=== PATIENT | female | born 1935 | race Caucasian/White ===

== ENCOUNTER 2016-08-04 08:57 | Emergency (ER) | payer OTHER, MEDICAID ==
[2016-08-04 09:06] VITALS: BMI 27.9
[2016-08-04 09:16] VITALS: BP 144/78; PULSE 71; RESP 15; TEMP 98.1; O2SAT 98
[2016-08-04] MEDS ORDERED: TDAP Vaccine 0.5 mL Syr IM ONE (09:33)
--- NOTE | 2016-08-04 09:35 | ED PDOC ---
Arrival/HPI - General Chief Complaint: Abnormal Skin Integrity Time Seen by Provider: 08/04/16 09:15 Historian: Patient - History of Present Illness Narrative History of Present Illness (Text): 08/04/16 09:32 81yo female biba for left hand laceration. sates she slipped while cutting avocado this morning and accidentally cut her left hand. States she is not up to date with her TD booster. denies hitting her head anywhere. Denies LOC. Past Medical History - Provider Review Nursing Documentation Reviewed: Yes - Infectious Disease Hx of Infectious Diseases: None - Reproductive Menopause: Yes - Cardiac Hx Cardiac Disorders: Yes Hx Hypertension: Yes Hx Pacemaker: No Other/Comment: stent placed in heart - Pulmonary Hx Respiratory Disorders: No - Neurological Hx Neurological Disorder: No - HEENT Hx HEENT Disorder: Yes Other/Comment: glasses - Renal Hx Renal Disorder: No - Endocrine/Metabolic Hx Endocrine Disorders: Yes Hx Diabetes Mellitus Type 2: Yes - Hematological/Oncological Hx Blood Disorders: No Hx Blood Transfusions: No Hx Blood Transfusion Reaction: No - Integumentary Hx Dermatological Disorder: No - Musculoskeletal/Rheumatological Hx Musculoskeletal Disorders: Yes Other/Comment: neuropathy - Gastrointestinal Hx Gastrointestinal Disorders: No - Genitourinary/Gynecological Hx Genitourinary Disorders: No - Psychiatric Hx Psychophysiologic Disorder: No Hx Emotional Abuse: No Hx Physical Abuse: No Hx Substance Use: No - Surgical History Hx Cardiac Catheterization: Yes (stent x1) - Anesthesia Hx Anesthesia: Yes Hx Anesthesia Reactions: No (FELT EVERYTHING DURING COLONOSCOPY) Hx Malignant Hyperthermia: No - Suicidal Assessment Feels Threatened In Home Enviroment: No Family/Social History - Physician Review Nursing Documentation Reviewed: Yes Family/Social History: Unknown Family HX Smoking Status: Never Smoked Hx Alcohol Use: No Hx Substance Use: No Allergies/Home Meds Allergies/Adverse Reactions: Allergies No Known Allergies Allergy (Verified 08/04/16 09:06) Home Medications: Home Meds Medication Instructions Recorded Confirmed Metformin HCl 1,000 mg PO BID 08/30/13 08/04/16 Gabapentin [Neurontin] 600 mg PO BID 04/20/15 08/04/16 Glyburide 5 mg PO BID 04/20/15 08/04/16 Lipase/Protease/Amylase [Pancreaze 2 cap PO TID 04/20/15 08/04/16 4,200 Unit Cap] Metoprolol Tartrate [Lopressor] 25 mg PO BID 04/20/15 08/04/16 Aspirin [Ecotrin] 81 mg PO DAILY 04/29/15 08/04/16 Clopidogrel [Plavix] 75 mg PO DAILY 04/30/15 08/04/16 Review of Systems - Physician Review All systems were reviewed & negative as marked: Yes - Review of Systems Constitutional: Normal Eyes: Normal ENT: Normal Respiratory: Normal Cardiovascular: Normal Gastrointestinal: Normal Genitourinary Female: Normal Musculoskeletal: Normal Skin: Laceration (Left hand) Neurological: Normal Endocrine: Normal Hemo/Lymphatic: Normal Psychiatric: Normal Physical Exam Vital Signs Reviewed: Yes Vital Signs Temp Pulse Resp BP Pulse Ox 08/04/16 09:15 98.1 F 71 15 144/78 98 Temperature: Afebrile Blood Pressure: Normal Pulse: Regular Respiratory Rate: Normal Appearance: Positive for: Well-Appearing, Non-Toxic, Comfortable Pain Distress: None Mental Status: Positive for: Alert and Oriented X 3 - Systems Exam Head: Present: Atraumatic, Normocephalic Pupils: Present: PERRL Extroacular Muscles: Present: EOMI Conjunctiva: Present: Normal Mouth: Present: Moist Mucous Membranes Neck: Present: Normal Range of Motion Respiratory/Chest: Present: Clear to Auscultation, Good Air Exchange. No: Respiratory Distress, Accessory Muscle Use Cardiovascular: Present: Regular Rate and Rhythm, Normal S1, S2. No: Murmurs Abdomen: Present: Normal Bowel Sounds. No: Tenderness, Distention, Peritoneal Signs Back: Present: Normal Inspection Upper Extremity: Present: Normal Inspection. No: Cyanosis, Edema Lower Extremity: Present: Normal Inspection. No: Edema Neurological: Present: GCS=15, CN II-XII Intact, Speech Normal Skin: Present: Warm, Dry, Normal Color, Laceration (0.5cm linear laceration, actively bleeding noted). No: Rashes Psychiatric: Present: Alert, Oriented x 3, Normal Insight, Normal Concentration Medical Decision Making - Medication Orders Current Medication Orders: Discontinued Medications Cephalexin Monohydrate (Keflex) 500 mg PO STAT STA PRN Reason: Protocol Stop: 08/04/16 09:32 Last Admin: 08/04/16 09:47 Dose: 500 mg Lidocaine/Epinephrine (Lidocaine/Epi 1% 1:[id number] 20 Ml) 0 ml IJ ONCE STA Stop: 08/04/16 09:32 Last Admin: 08/04/16 10:08 Dose: 5 ml Comments: admin by NELDA Muhammad Tetanus/Reduced Diphtheria/Acell Pertussis (Boostrix Vaccine Inj) 0.5 ml IM .ONCE ONE Stop: 08/04/16 09:34 Last Admin: 08/04/16 09:47 Dose: 0.5 ml Procedure: Wound Repair - Consent Obtained Consent obtained: Verbal - Performed by Performed by: Mid-level Provider - Indications Indication(s):: Laceration - Location Location:: Left, Hand Shape:: Linear Dimensions Length cm: 0.5 - Anesthetic Technique Anesthetic Technique: Local - Debris Debris:: None - Irrigated Irrigated with ml of normal saline: 40 - Complexity Complexity:: Intermediate (2 layer) - Muscle repiar layer closed with Muscle repair layer closed with:: # (2), Size (5), Type (absorbale), Technique ( intrrupted), Wound well approximated, Abx ointment applied, Dressing applied, Tetanus ordered - Patient tolerated procedure Patient Tolerated Procedure:: Well Disposition/Present on Arrival - Present on Arrival Any Indicators Present on Arrival: No History of DVT/PE: No History of Uncontrolled Diabetes: No Urinary Catheter: No History of Decub. Ulcer: No History Surgical Site Infection Following: None - Disposition Have Diagnosis and Disposition been Completed?: Yes Diagnosis: Laceration, Hand laceration Disposition: HOME/ ROUTINE Disposition Time: 10:00 Patient Plan: Discharge Condition: STABLE Discharge Instructions (ExitCare): Care For Your Stitches (ED), Laceration (ED) Additional Instructions: Follow up with your Doctor Return to ED for fever, redness, purulent discharge from wound Prescriptions: Cephalexin [Keflex] 500 mg PO TID #21 capsule [place] [facility] [place] [facility] [place] - Follow up with primary
[2016-08-04] MEDS: Lidocaine/Epi 1% 1:100000 20 ML IJ STA ×2 (09:53→10:08)
== END 2016-08-04 10:12 | disposition home or self-care (01) ==
LOC: ED 08:57
DX: S61.412A Laceration without foreign body of left hand, initial encounter (principal); W26.0XXA Contact with knife, initial encounter; Y93.G1 Activity, food preparation and clean up; Y92.89 Other specified places as the place of occurrence of the external cause; Z23 Encounter for immunization

== ENCOUNTER 2016-08-14 17:22 | Inpatient (IN) | payer OTHER, MEDICAID ==
[2016-08-14 17:50] VITALS: BMI 27.1
[2016-08-14] MEDS ORDERED: Vancomycin 1gm in NS 250ml 1 GM/250 ML BAG IVPB STA (18:09)
[2016-08-14] MEDS ORDERED: Sodium Chloride 0.9% 500 ML IV STA (18:09)
[2016-08-14 18:40] LABS: BASO # 0.05 K/mm3 (0.0-2.0); BASO % 0.8 % (0.0-3.0); EOS # 0.2 (0.0-0.7); EOS % 2.5 % (1.5-5.0); GRAN # 3.06 (1.4-6.5); HEMOGLOBIN 10.3 gm/dL (12.0-16.0); LYMPH # 2.3 (1.2-3.4); LYMPH % 38.2 % (22.0-35.0); MEAN CELL VOLUME 82.5 fL (80.0-105.0); MEAN CORPUSCULAR HGB CONC 32.7 g/dl (31.0-37.0); MEAN PLATELET VOLUME 9.9 fl (7.0-11.0); MONO # 0.5 (0.1-0.6); MONO % 8.5 % (1.0-6.0); PLATELET COUNT 281 10^3/uL (120.0-450.0); RBC 3.82 10^6/uL (3.5-6.1); RED CELL DISTRIBUTION WIDTH 13.7 % (11.5-14.5); WHITE BLOOD COUNT 6.1 10^3/ul (4.5-11.0)
--- NOTE | 2016-08-14 18:40 | ED PDOC ---
Arrival/HPI - General Chief Complaint: Finger,Hand,&Wrist Time Seen by Provider: 08/14/16 17:51 - History of Present Illness Narrative History of Present Illness (Text): 08/14/16 18:37 81yo female with L. hand pain. states she sustained a laceration on 08/04 which was repaired. Denies fever or chills. Pain is constant with no relieving or exacerbating factors. No other complaints. Past Medical History - Provider Review Nursing Documentation Reviewed: Yes - Infectious Disease Hx of Infectious Diseases: None - Cardiac Hx Hypertension: Yes Hx Pacemaker: No - Pulmonary Hx Respiratory Disorders: No - Neurological Hx Neurological Disorder: No - HEENT Hx HEENT Disorder: Yes Other/Comment: glasses - Renal Hx Renal Disorder: No - Endocrine/Metabolic Hx Endocrine Disorders: Yes Hx Diabetes Mellitus Type 2: Yes - Hematological/Oncological Hx Blood Transfusions: No Hx Blood Transfusion Reaction: No - Integumentary Hx Dermatological Disorder: No - Musculoskeletal/Rheumatological Hx Musculoskeletal Disorders: Yes - Gastrointestinal Hx Gastrointestinal Disorders: No - Genitourinary/Gynecological Hx Genitourinary Disorders: No - Psychiatric Hx Psychophysiologic Disorder: No Hx Substance Use: No - Surgical History Hx Cardiac Catheterization: Yes (stent x1) - Anesthesia Hx Anesthesia Reactions: No (FELT EVERYTHING DURING COLONOSCOPY) Hx Malignant Hyperthermia: No - Suicidal Assessment Feels Threatened In Home Enviroment: No Family/Social History Family/Social History: Unknown Family HX Smoking Status: Never Smoked Hx Alcohol Use: No Hx Substance Use: No Allergies/Home Meds Allergies/Adverse Reactions: Allergies No Known Allergies Allergy (Verified 08/14/16 17:50) Home Medications: Home Meds Medication Instructions Recorded Confirmed Metformin HCl 1,000 mg PO BID 08/30/13 08/14/16 Gabapentin [Neurontin] 600 mg PO TID 04/20/15 08/14/16 Glyburide 5 mg PO BID 04/20/15 08/14/16 Lipase/Protease/Amylase [Pancreaze 2 cap PO TID 04/20/15 08/14/16 4,200 Unit Cap] Metoprolol Tartrate [Lopressor] 25 mg PO BID 04/20/15 08/14/16 Aspirin [Ecotrin] 81 mg PO DAILY 04/29/15 08/14/16 Clopidogrel [Plavix] 75 mg PO DAILY 03/10/16 06/25/17 Review of Systems - Physician Review All systems were reviewed & negative as marked: Yes - Review of Systems Skin: Other (hand pain) Physical Exam Vital Signs Reviewed: Yes Vital Signs Temp Pulse Resp BP Pulse Ox 08/14/16 17:58 98.1 F 87 16 159/84 H 96 Temperature: Afebrile Blood Pressure: Hypertensive Pulse: Regular Respiratory Rate: Normal Appearance: Positive for: Well-Appearing Pain Distress: None Mental Status: Positive for: Alert and Oriented X 3 - Systems Exam Head: Present: Atraumatic, Normocephalic Pupils: Present: PERRL Extroacular Muscles: Present: EOMI Conjunctiva: Present: Normal Mouth: Present: Moist Mucous Membranes Neck: Present: Normal Range of Motion Respiratory/Chest: Present: Clear to Auscultation, Good Air Exchange. No: Respiratory Distress, Accessory Muscle Use Cardiovascular: Present: Regular Rate and Rhythm, Normal S1, S2. No: Murmurs Abdomen: Present: Normal Bowel Sounds. No: Tenderness, Distention, Peritoneal Signs, Rebound, Guarding Back: Present: Normal Inspection Upper Extremity: Present: Other (Left hand, blas aspect with a well approximated incision. Sutures in place. Pulsatile mass ~1.5cm. No surrounding erythema or cellulitis noted. Distal neurovasc. fully intact, no discoloration. 5/5 digit strength, full active and passive ROM). No: Cyanosis, Edema Neurological: Present: GCS=15, CN II-XII Intact, Speech Normal, Other (no focal neurological deficits) Skin: Present: Warm, Dry, Normal Color. No: Rashes Psychiatric: Present: Alert, Oriented x 3, Normal Insight, Normal Concentration Medical Decision Making ED Course and Treatment: 08/14/16 18:48 81yo female, hand sutures applied on 08/04, with pain and pulsatile mass at the suture site Left hand, blas aspect with a well approximated incision. Sutures in place. Pulsatile mass ~1.5cm. No surrounding erythema or cellulitis noted. Distal neurovasc. fully intact, no discoloration. 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 Gilmore in detail, agrees with admission to her service, asked to consult Dr. Thomas Rachel. pt in no distress, neurovasc. intact pt aware of and agrees with plan 08/14/16 20:[address] Thomas Rachel, in detail, including US findings, states will see pt tomorrow - Lab Interpretations Lab Results: 08/14/16 18:15 08/14/16 18:15 Lab Results 08/14/16 18:15: Blood Type Pending, Antibody Screen Pending, BBK History Checked No verified bt 08/14/16 18:15: Sodium 137, Potassium 4.0, Chloride 99, Carbon Dioxide 26, Anion Gap 16, BUN 33 H, Creatinine 1.1, Est GFR ( Amer) 58, Est GFR (Non- Af Amer) 48, Random Glucose 267 H, Calcium 11.0 H, Total Bilirubin 0.4, AST 45 H , ALT 39, Alkaline Phosphatase 86, Total Protein 7.4, Albumin 4.3, Globulin 3.1 , Albumin/Globulin Ratio 1.4 08/14/16 18:15: PT 12.3 H, INR 1.14 H, APTT 27.1 08/14/16 18:15: WBC 6.1, RBC 3.82, Hgb 10.3 L, Hct 31.5 L, MCV 82.5, MCH 27.0, MCHC 32.7, RDW 13.7, Plt Count 281, MPV 9.9, Gran % 50.0, Lymph % (Auto) 38.2 H , [place] % (Auto) 8.5 H, Eos % (Auto) 2.5, Baso % (Auto) 0.8, Gran # 3.06, Lymph # 2.3, [place] # 0.5, Eos # 0.2, Baso # 0.05 - RAD Interpretation Radiology Orders: 08/14/16 18:10 DUPLEX UPPER EXTRM ARTR LEFT [US] Stat - Medication Orders Current Medication Orders: Discontinued Medications Sodium Chloride (Sodium Chloride 0.9%) 500 mls @ 1,000 mls/hr IV .Q30M STA Stop: 08/14/16 18:38 Last Admin: 08/14/16 19:06 Dose: 1,000 mls/hr Vancomycin HCl (Vancomycin 1gm) 1 gm in 250 mls @ 133.333 mls/hr IVPB STAT STA PRN Reason: Protocol Stop: 08/14/16 20:01 Last Admin: 08/14/16 19:00 Dose: 133.333 mls/hr Disposition/Present on Arrival - Present on Arrival Any Indicators Present on Arrival: No History of DVT/PE: No History of Uncontrolled Diabetes: No Urinary Catheter: No History of Decub. Ulcer: No History Surgical Site Infection Following: None - Disposition Have Diagnosis and Disposition been Completed?: Yes Diagnosis: Pseudoaneurysm Disposition: HOSPITALIZED Disposition Time: 20:27 Patient Plan: Admission Patient Problems: Current Active Problems Problem Status Onset Pseudoaneurysm Acute Condition: FAIR Referrals: Zaida Gilmore MD [Primary Care Provider] - Follow up with primary
[2016-08-14 18:50] LABS: INR 1.14 (0.93-1.08); PARTIAL THROMBOPLASTIN TIME 27.1 Seconds (23.7-30.8); PROTHROMBIN TIME 12.3 Seconds (9.9-11.8)
[2016-08-14 18:51] LABS: ALB/GLOB RATIO 1.4 (1.1-1.8); ALBUMIN 4.3 g/dL (3.0-4.8)
--- NOTE | 2016-08-14 19:05 | US ---
PROCEDURE: Duplex arterial ultrasound of the left wrist HISTORY: Penetrating trauma left wrist. Pulsatile mass. Evaluate for pseudoaneurysm. PHYSICIAN(S): Brayden Singh MD. 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 This is a wide-necked aneurysm. Minimal thrombus is present. The ulnar artery is patent. No arterial-venous fistula is seen IMPRESSION: 1. 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
--- NOTE | 2016-08-14 21:42 | CP.PCM.CON ---
History of Present Illness - History of Present Illness History of Present Illness: General Surgery Consult Note for Dr. Leal CC: Painful Lump on lbas aspect of left hand HPI: This is a 81F with a PMH of HTN, CAD s/p Stenting, Chronic pancreatitis, and glaucoma presents with a pulsitile mass that she recognized a few days ago. She reports that a week and a hlaf ago she come to the ED due to a laceration on her hand. It was sutured in the ED. A few days ago she noticed a lump which was painful and she thought it maybe infected so she went to the ED. It was noted that it was pulsitile and an ultrasound was done which showed a 1.7 cm psuedoaneurysm on the left hand. She denies any fevers or chills at home, denies chets pain SOB or any other alarming symptomes. PMH: See above PSH: Eye surgery, cardiac stenting All: Denies Social: Denies etoh, tobacco, or drugs Review of Systems - Review of Systems All systems: reviewed and no additional remarkable complaints except Past Patient History - Infectious Disease Hx of Infectious Diseases: None - Past Social History Smoking Status: Never Smoked - CARDIAC Hx Hypertension: Yes Hx Pacemaker: No - PULMONARY Hx Respiratory Disorders: No - NEUROLOGICAL Hx Neurological Disorder: No - HEENT Hx HEENT Problems: Yes Other/Comment: glasses - RENAL Hx Chronic Kidney Disease: No - ENDOCRINE/METABOLIC Hx Endocrine Disorders: Yes Hx Diabetes Mellitus Type 2: Yes - HEMATOLOGICAL/ONCOLOGICAL Hx Blood Transfusions: No Hx Blood Transfusion Reaction: No - INTEGUMENTARY Hx Dermatological Problems: No - MUSCULOSKELETAL/RHEUMATOLOGICAL Hx Musculoskeletal Disorders: Yes - GASTROINTESTINAL Hx Gastrointestinal Disorders: No - GENITOURINARY/GYNECOLOGICAL Hx Genitourinary Disorders: No - PSYCHIATRIC Hx Psychophysiologic Disorder: No Hx Substance Use: No - SURGICAL HISTORY Hx Cardiac Catheterization: Yes (stent x1) - ANESTHESIA Hx Anesthesia Reactions: No (FELT EVERYTHING DURING COLONOSCOPY) Hx Malignant Hyperthermia: No Meds Allergies/Adverse Reactions: Allergies Allergy/AdvReac Type Severity Reaction Status Date / Time No Known Allergies Allergy Verified 08/14/16 17:50 Physical Exam - Constitutional Appears: Non-toxic, No Acute Distress - Head Exam Head Exam: ATRAUMATIC, NORMOCEPHALIC - Eye Exam Eye Exam: EOMI, Normal appearance - ENT Exam ENT Exam: Mucous Membranes Moist - Respiratory Exam Respiratory Exam: NORMAL BREATHING PATTERN - Cardiovascular Exam Cardiovascular Exam: REGULAR RHYTHM - GI/Abdominal Exam GI & Abdominal Exam: Soft. absent: Distended, Firm, Rigid, Tenderness - Extremities Exam Additional comments: Left hand blas aspect with pulsitile mass, with surrounding tenderess, muscles strength 5/5 Results - Vital Signs Recent Vital Signs: Last Vital Signs Temp 98.1 F 08/14/16 17:58 Pulse 88 08/14/16 19:23 Resp 18 08/14/16 19:23 BP 144/78 08/14/16 19:23 Pulse Ox 99 08/14/16 19:23 - Labs Result Diagrams: 08/14/16 18:15 08/14/16 18:15 Assessment & Plan - Assessment and Plan (Free Text) Assessment: This is a 81F with a psuedoaneurism OR for Surgical repair on Monday D/W Dr. Elvis Pickering PGY-1
[2016-08-14] MEDS ORDERED: DiphenhydrAMINE 50 mg/ml Inj IVP STA (22:46)
--- NOTE | 2016-08-14 22:46 | CP.PCM.PN ---
Subjective - Date & Time of Evaluation Date of Evaluation: 08/14/16 Time of Evaluation: 23:04 - Subjective Subjective: Patient was seen at bedside. Complains of itching in both legs. No rashes. No sob, no wheezing. No other complaints. Has no allergies to meds , food or any other substance. Had received one dose of Vancomycin 97% 82 153/87. She is admitted with infected laceration site in left palm, pseudoaneurism. Has PMH of HTN,CAD , coronary stenting,chronic pancreatitis. Objective - Vital Signs/Intake and Output Vital Signs (last 24 hours): Temp Pulse Resp BP Pulse Ox 98.1 F 88 18 144/78 99 08/14/16 17:58 08/14/16 21:50 08/14/16 21:50 08/14/16 21:50 08/14/16 19:23 - Labs Labs: PT 12.3 Seconds (9.9-11.8) H 08/14/16 18:15 INR 1.14 (0.93-1.08) H 08/14/16 18:15 APTT 27.1 Seconds (23.7-30.8) 08/14/16 18:15 - Constitutional Appears: Well, No Acute Distress - Head Exam Head Exam: ATRAUMATIC, NORMAL INSPECTION, NORMOCEPHALIC - Eye Exam Eye Exam: Normal appearance - ENT Exam ENT Exam: Normal External Ear Exam - Neck Exam Neck Exam: Normal Inspection - Respiratory Exam Respiratory Exam: NORMAL BREATHING PATTERN - Cardiovascular Exam Cardiovascular Exam: absent: JVD - GI/Abdominal Exam GI & Abdominal Exam: absent: Distended - Rectal Exam Rectal Exam: Deferred - Exam Additional comments: Deferred. - Extremities Exam Additional comments: Left palm has < 0.5 cm size lump with whitish overlying skin. - Back Exam Back Exam: NORMAL INSPECTION - Neurological Exam Neurological Exam: Alert, Oriented x3 - Psychiatric Exam Psychiatric exam: Normal Affect, Normal Mood - Skin Additional comments: As above. Assessment and Plan - Assessment and Plan (Free Text) Assessment: Left palm pseudoaneurism. Both legs itching. HTN. CAD. Hx coronary stent . Plan: Benadryl 25 mg PO stat. Lipitor 10 mg PO daily. Plavix 75 mg PO daily. Continue management as per PMD.
[2016-08-14] MEDS ORDERED: HYDROmorphone 0.5 mg/0.5 ml ISec IVP PRN (23:04)
[2016-08-15] MEDS: Insulin Reg-LOW-Coverage SC SCH ×4 (08:29→23:36)
[2016-08-15] MEDS: cefTRIAXone 1 gm 1 GM/100 ML BAG IVPB SCH (09:44)
[2016-08-15] MEDS: Amylase/Lipase/Protease 5,000 U ECC PO SCH ×3 (12:30→19:29)
[2016-08-15] MEDS ORDERED: Iodixanol 320 MG/ML 200 ML BOTTLE IV ONE (13:23)
[2016-08-15] MEDS ORDERED: Lidocaine 2% Inj (20ml) ONE (13:23)
[2016-08-15] MEDS ORDERED: Iodixanol 320 mg/ml 150 ml Bottle IV ONE (13:23)
[2016-08-15] MEDS ORDERED: Nitroglycerin 50mg in D5W 0 MG/0 ML BOTTLE IV ONE (13:24)
[2016-08-15] MEDS ORDERED: DiphenhydrAMINE 50 mg/ml Inj ONE (13:32)
[2016-08-15] MEDS ORDERED: Morphine 2 mg/ml ISec ONE ×2 (13:32→13:52)
[2016-08-15] MEDS ORDERED: Metoprolol 1 mg/ml Inj IVP ONE ×2 (13:55→14:13)
[2016-08-15] MEDS ORDERED: Sodium Chloride 0.9% 1,000 ML IV SCH (14:55)
--- NOTE | 2016-08-15 17:40 | OP ---
PROCEDURE DATE: 08/15/2016 PREOPERATIVE DIAGNOSES: Left palmar false aneurysm. POSTOPERATIVE DIAGNOSES: Left palmar false aneurysm. PROCEDURE: Left arm, forearm and hand angiogram via right femoral puncture site. SURGEON: Louann Leal MD. ANESTHESIA: Local bone. PROCEDURE NOTE: The patient was brought to the angio suite and placed supine on the angio table. The right groin was prepped and draped as a sterile field. After local infiltration with 1% Xylocaine, the right femoral artery was cannulated with a micropuncture kit and a guidewire passed into the iliac artery. The micropuncture sheath was exchanged for a 5-Telugu sheath and a stiff angled guidewire passed via the sheath into the aortic arch. Using a 90 cm Charles catheter, the catheter and guidewire was maneuvered into the left subclavian artery. The catheter was placed at the distal brachial artery just below the antecubital fossa. Serial angiogram showed the following: The patient has an absent radial artery here, she has a patent ulnar and interosseous artery. There is a large false aneurysm at the 4th digital artery at the base. There appeared to be adequate cross collaterals of the left digits. After that, the catheter was withdrawn into the axillary artery to rule out a highoff of the radial artery and none was found. The catheter was removed. The sheath was removed when the blood pressure is below 140 systolic. The patient tolerated the procedure well and was returned to the recovery room in stable condition. Louann Leal MD cc: [id number] TT: 08/15/2016 17:39:08 jn MTDD
[2016-08-15] MEDS ORDERED: Amylase/Lipase/Protease 5,000 U ECC PO SCH (19:06)
[2016-08-16] MEDS: Insulin Reg-LOW-Coverage SC SCH ×4 (08:03→21:21)
--- NOTE | 2016-08-16 08:20 | RAD ---
HISTORY: pre op surgery COMPARISON: 09/04/2013. TECHNIQUE: Chest PA and lateral FINDINGS: LUNGS: The lungs are clear. PLEURA: No significant pleural effusion identified. No pneumothorax apparent. CARDIOVASCULAR: Normal. OSSEOUS STRUCTURES: No significant abnormalities. VISUALIZED UPPER ABDOMEN: Normal. OTHER FINDINGS: None. IMPRESSION: No active pulmonary disease.
[2016-08-16] MEDS ORDERED: Thrombin Topical 5,000 IU Spray Kit ONE (08:57)
[2016-08-16] MEDS ORDERED: Bupivacaine 0.5% Inj(30mL) ONE (08:57)
[2016-08-16] MEDS ORDERED: Lidocaine 1% Inj (20ml) ONE (08:57)
[2016-08-16] MEDS ORDERED: Propofol 10 mg/ml Inj (20 ML) ONE (08:57)
[2016-08-16] MEDS ORDERED: Absorbable Gelatin Sponge Size 100 ONE (08:57)
[2016-08-16] MEDS ORDERED: Iohexol 240 (50 ml) ONE (08:57)
[2016-08-16] MEDS ORDERED: cefTRIAXone (Rocephin) 1 gm Inj ONE (09:06)
[2016-08-16] MEDS ORDERED: Rocuronium 10 mg/ml (5 ml) ONE (09:21)
[2016-08-16] MEDS ORDERED: ePHEDrine 50 mg/ml Inj ONE (09:36)
--- NOTE | 2016-08-16 09:54 | CARD ---
APPROVED REPORT EKG Measurement Heart [id number] <Conclusion> Normal sinus rhythm Left axis deviation Nonspecific T wave abnormality Abnormal ECG
[2016-08-16] MEDS ORDERED: Neostigmine Methylsulfate 3mg/3ml Syringe IV ONE (10:21)
[2016-08-16] MEDS ORDERED: HYDROmorphone 0.5 mg/0.5 ml ISec IVP PRN (10:40)
--- NOTE | 2016-08-16 10:42 | PCM.SURG1 ---
Surgeon's Initial Post Op Note - Surgeon's Notes Surgeon: Dr. Leal Keycase Assembler: Dr. Mark, PGY1 Pre-Operative Diagnosis: Left digital palmar artery pseudoaneurysm Operative Findings: see operative report Post-Operative Diagnosis: same Operation Performed: excision of left palmar digital pseudoaneurysm Specimen/Specimens Removed: digital artery pseudoaneurysm Estimated Blood Loss: EBL {In ML}: 5 Blood Products Given: N/A Drains Used: No Drains Post-Op Condition: Good Date of Surgery/Procedure: 08/16/16 Time of Surgery/Procedure: 10:41
[2016-08-16] MEDS ORDERED: Sodium Chloride 0.9% 1,000 ML IV SCH (10:45)
[2016-08-16] MEDS: Amylase/Lipase/Protease 5,000 U ECC PO SCH ×3 (11:11→17:21)
[2016-08-16] MEDS: cefTRIAXone 1 gm 1 GM/100 ML BAG IVPB SCH (13:14)
[2016-08-16] MEDS ORDERED: Fluorescein 1 mg Ophthalmic Strip OS ONE (14:33)
--- NOTE | 2016-08-16 14:43 | CP.PCM.PN ---
Subjective - Date & Time of Evaluation Date of Evaluation: 08/16/16 Time of Evaluation: 14:40 - Subjective Subjective: called by nurse to see pt is c/o something in her rt eye.pt states she feels like something is in her rt eyeand she is keeping the eye closed for that reason. Objective - Vital Signs/Intake and Output Vital Signs (last 24 hours): Temp Pulse Resp BP Pulse Ox 98.9 F 83 18 149/71 97 08/16/16 12:05 08/16/16 12:05 08/16/16 12:05 08/16/16 12:05 08/16/16 12:05 Intake and Output: 08/16/16 08/16/16 06:59 18:59 Intake Total 100 240 Balance 100 240 - Medications Medications: Current Medications Amylase (Pancrease 24642 U-5000 U-[id number] U) 10,000 u PO TID [facility] Last Admin: 08/16/16 13:14 Dose: 10,000 u Aspirin (Ecotrin) 81 mg PO HS [facility] Last Admin: 08/15/16 23:26 Dose: 81 mg Atorvastatin Calcium (Lipitor) 10 mg PO DIN [facility] Last Admin: 08/15/16 18:48 Dose: 10 mg Clopidogrel Bisulfate (Plavix) 75 mg PO HS [facility] Last Admin: 08/15/16 23:26 Dose: 75 mg Famotidine (Pepcid) 40 mg PO HS [facility] Last Admin: 08/15/16 23:26 Dose: 40 mg Gabapentin (Neurontin) 600 mg PO TID [facility] PRN Reason: Protocol Last Admin: 08/16/16 13:14 Dose: 600 mg Glyburide (Micronase) 5 mg PO BID [facility] Last Admin: 08/16/16 11:11 Dose: Not Given Hydromorphone HCl (Dilaudid) 0.5 mg IVP Q4H PRN PRN Reason: Pain, Mild (1-3) Ceftriaxone Sodium (Rocephin 1 Gram Ivpb) 1 gm in 100 mls @ 100 mls/hr IVPB DAILY [facility] PRN Reason: Protocol Last Admin: 08/16/16 13:14 Dose: 100 mls/hr Insulin Human Regular (Humulin R Low) 0 units SC ACHS [facility] PRN Reason: Protocol Last Admin: 08/16/16 12:58 Dose: Not Given Metformin HCl (Glucophage) 1,000 mg PO BID [facility] Last Admin: 08/16/16 11:10 Dose: Not Given Metoprolol Tartrate (Lopressor) 25 mg PO BID [facility] Last Admin: 08/16/16 13:03 Dose: Not Given Tramadol HCl (Ultram) 50 mg PO Q6 PRN PRN Reason: Pain, moderate (4-7) - Labs Labs: PT 12.3 Seconds (9.9-11.8) H 08/14/16 18:15 INR 1.14 (0.93-1.08) H 08/14/16 18:15 APTT 27.1 Seconds (23.7-30.8) 08/14/16 18:15 - Constitutional Appears: No Acute Distress - Eye Exam Additional comments: rt eye mild watering no erythema noted.eye seen with frourecene drops shows cornear scarach. Assessment and Plan - Assessment and Plan (Free Text) Assessment: rt corneal scratch.
[2016-08-16 17:19] VITALS: RESP 20
[2016-08-16] MEDS: Ciprofloxacin 0.3% OPTH SOLN OS SCH (17:20)
--- NOTE | 2016-08-16 23:16 | CP.PCM.CON ---
History of Present Illness - History of Present Illness History of Present Illness: HPI: This is a 81F with a PMH of HTN, CAD s/p Stenting, Chronic pancreatitis, and glaucoma presents with a pulsitile mass that she recognized a few days ago. She reports that a week and a hlaf ago she come to the ED due to a laceration on her hand. It was sutured in the ED. A few days ago she noticed a lump which was painful and she thought it maybe infected so she went to the ED. It was noted that it was pulsitile and an ultrasound was done which showed a 1.7 cm psuedoaneurysm on the left hand. She denies any fevers or chills at home, denies chets pain SOB or any other alarming symptomes. seen in recovery room, s/p psueaneurysm repair Past Patient History - Infectious Disease Hx of Infectious Diseases: None - Past Social History Smoking Status: Never Smoked - CARDIAC Hx Hypertension: Yes Hx Pacemaker: No - PULMONARY Hx Respiratory Disorders: No - NEUROLOGICAL Hx Neurological Disorder: No - HEENT Hx HEENT Problems: Yes Other/Comment: glasses - RENAL Hx Chronic Kidney Disease: No - ENDOCRINE/METABOLIC Hx Endocrine Disorders: Yes Hx Diabetes Mellitus Type 2: Yes - HEMATOLOGICAL/ONCOLOGICAL Hx Blood Transfusions: No Hx Blood Transfusion Reaction: No - INTEGUMENTARY Hx Dermatological Problems: No - MUSCULOSKELETAL/RHEUMATOLOGICAL Hx Musculoskeletal Disorders: Yes - GASTROINTESTINAL Hx Gastrointestinal Disorders: No - GENITOURINARY/GYNECOLOGICAL Hx Genitourinary Disorders: No - PSYCHIATRIC Hx Psychophysiologic Disorder: No Hx Substance Use: No - SURGICAL HISTORY Hx Surgeries: Yes - ANESTHESIA Hx Anesthesia Reactions: No (FELT EVERYTHING DURING COLONOSCOPY) Hx Malignant Hyperthermia: No Meds Allergies/Adverse Reactions: Allergies Allergy/AdvReac Type Severity Reaction Status Date / Time vancomycin Allergy ITCHING Verified 08/16/16 08:25 - Medications Medications: Current Medications Amylase (Pancrease 34837 U-5000 U-15707 U) 10,000 u PO TID [facility] Last Admin: 08/16/16 17:21 Dose: 10,000 u Aspirin (Ecotrin) 81 mg PO HS [facility] Last Admin: 08/16/16 21:21 Dose: 81 mg Atorvastatin Calcium (Lipitor) 10 mg PO DIN [facility] Last Admin: 08/16/16 17:21 Dose: 10 mg Ciprofloxacin (Ciloxan 0.3% Ophth Soln) 1 drop OS BIDAC [facility] Last Admin: 08/16/16 17:20 Dose: 1 drop Clopidogrel Bisulfate (Plavix) 75 mg PO HS [facility] Last Admin: 08/16/16 21:20 Dose: 75 mg Famotidine (Pepcid) 40 mg PO HS [facility] Last Admin: 08/16/16 21:20 Dose: 40 mg Gabapentin (Neurontin) 600 mg PO TID [facility] PRN Reason: Protocol Last Admin: 08/16/16 17:21 Dose: 600 mg Glyburide (Micronase) 5 mg PO BID [facility] Last Admin: 08/16/16 17:23 Dose: 5 mg Hydromorphone HCl (Dilaudid) 0.5 mg IVP Q4H PRN PRN Reason: Pain, Mild (1-3) Ceftriaxone Sodium (Rocephin 1 Gram Ivpb) 1 gm in 100 mls @ 100 mls/hr IVPB DAILY [facility] PRN Reason: Protocol Last Admin: 08/16/16 13:14 Dose: 100 mls/hr Insulin Human Regular (Humulin R Low) 0 units SC ACHS [facility] PRN Reason: Protocol Last Admin: 08/16/16 21:21 Dose: 2 units Metformin HCl (Glucophage) 1,000 mg PO BID [facility] Last Admin: 08/16/16 17:22 Dose: 1,000 mg Metoprolol Tartrate (Lopressor) 25 mg PO BID [facility] Last Admin: 08/16/16 17:22 Dose: 25 mg Tramadol HCl (Ultram) 50 mg PO Q6 PRN PRN Reason: Pain, moderate (4-7) Physical Exam - Constitutional Appears: Well - Head Exam Head Exam: ATRAUMATIC, NORMAL INSPECTION, NORMOCEPHALIC - Eye Exam Eye Exam: EOMI, Normal appearance, PERRL - ENT Exam ENT Exam: Mucous Membranes Moist, Normal Exam - Neck Exam Neck exam: Positive for: Normal Inspection - Respiratory Exam Respiratory Exam: Clear to Auscultation Bilateral, NORMAL BREATHING PATTERN - Cardiovascular Exam Cardiovascular Exam: REGULAR RHYTHM - GI/Abdominal Exam GI & Abdominal Exam: Normal Bowel Sounds, Soft. absent: Tenderness - Extremities Exam Additional comments: left hand with dressing - Psychiatric Exam Psychiatric exam: Normal Affect, Normal Mood - Skin Skin Exam: Dry, Intact, Normal Color, Warm Results - Vital Signs Recent Vital Signs: Last Vital Signs Temp 98 F 08/16/16 16:00 Pulse 90 08/16/16 16:00 Resp 20 08/16/16 16:00 BP 121/70 08/16/16 16:00 Pulse Ox 95 08/16/16 16:00 - Labs Result Diagrams: 08/14/16 18:15 08/14/16 18:15 Labs: Laboratory Results - last 24 hr 08/15/16 08/15/16 08/16/16 22:09 23:29 08:00 POC Glucose (mg/dL) 212 H 237 H 206 H 08/16/16 08/16/16 16:00 21:07 POC Glucose (mg/dL) 353 H 323 H Assessment & Plan (1) Asthma Status: Acute (2) Sleep apnea Status: Acute (3) Lung nodule Status: Acute (4) Insomnia Status: Acute (5) Pseudoaneurysm Status: Acute - Assessment and Plan (Free Text) Plan: Surgical follow up pain meds sleepapnea precaution gastric and dvt prof
--- NOTE | 2016-08-17 00:20 | CP.PCM.PN ---
Subjective - Date & Time of Evaluation Date of Evaluation: 08/17/16 Time of Evaluation: 00:02 - Subjective Subjective: Patient was seen at bedside. Complained of itching in arms to nurse. States that she has itchig in both feet . Has no other complaints. Has allergey to vancomycin.No allergies to any food. Denies rash, sob , wheezing. Medical record was reviewed. This 81 year old woman was admitted with infection, pseudoaneurism in left hand. Has PMH of DM II , HTN, HLD,CAD, coronary stenting, chronic pancreatitis. Objective - Vital Signs/Intake and Output Vital Signs (last 24 hours): Temp Pulse Resp BP Pulse Ox 98 F 90 20 121/70 95 08/16/16 16:00 08/16/16 16:00 08/16/16 16:00 08/16/16 16:00 08/16/16 16:00 Intake and Output: 08/16/16 08/17/16 18:59 06:59 Intake Total 240 420 Balance 240 420 - Medications Medications: Current Medications Amylase (Pancrease 94892 U-5000 U-77436 U) 10,000 u PO TID [facility] Last Admin: 08/16/16 17:21 Dose: 10,000 u Aspirin (Ecotrin) 81 mg PO HS [facility] Last Admin: 08/16/16 21:21 Dose: 81 mg Atorvastatin Calcium (Lipitor) 10 mg PO DIN [facility] Last Admin: 08/16/16 17:21 Dose: 10 mg Ciprofloxacin (Ciloxan 0.3% Ophth Soln) 1 drop OS BIDAC [facility] Last Admin: 08/16/16 17:20 Dose: 1 drop Clopidogrel Bisulfate (Plavix) 75 mg PO HS [facility] Last Admin: 08/16/16 21:20 Dose: 75 mg Famotidine (Pepcid) 40 mg PO HS [facility] Last Admin: 08/16/16 21:20 Dose: 40 mg Gabapentin (Neurontin) 600 mg PO TID [facility] PRN Reason: Protocol Last Admin: 08/16/16 17:21 Dose: 600 mg Glyburide (Micronase) 5 mg PO BID [facility] Last Admin: 08/16/16 17:23 Dose: 5 mg Hydromorphone HCl (Dilaudid) 0.5 mg IVP Q4H PRN PRN Reason: Pain, Mild (1-3) Ceftriaxone Sodium (Rocephin 1 Gram Ivpb) 1 gm in 100 mls @ 100 mls/hr IVPB DAILY [facility] PRN Reason: Protocol Last Admin: 08/16/16 13:14 Dose: 100 mls/hr Insulin Human Regular (Humulin R Low) 0 units SC ACHS [facility] PRN Reason: Protocol Last Admin: 08/16/16 21:21 Dose: 2 units Metformin HCl (Glucophage) 1,000 mg PO BID [facility] Last Admin: 08/16/16 17:22 Dose: 1,000 mg Metoprolol Tartrate (Lopressor) 25 mg PO BID [facility] Last Admin: 08/16/16 17:22 Dose: 25 mg Tramadol HCl (Ultram) 50 mg PO Q6 PRN PRN Reason: Pain, moderate (4-7) - Labs Labs: PT 12.3 Seconds (9.9-11.8) H 08/14/16 18:15 INR 1.14 (0.93-1.08) H 08/14/16 18:15 APTT 27.1 Seconds (23.7-30.8) 08/14/16 18:15 Micro Results 08/14/16 19:00 Blood-Venous Blood Culture - Preliminary NO GROWTH AFTER 48 HOURS 08/14/16 18:15 Blood-Venous Blood Culture - Preliminary NO GROWTH AFTER 48 HOURS Most Recent Lab Values WBC 6.1 10^3/ul (4.5-11.0) 08/14/16 18:15 RBC 3.82 10^6/uL (3.5-6.1) 08/14/16 18:15 Hgb 10.3 gm/dL (12.0-16.0) L 08/14/16 18:15 Hct 31.5 % (36.0-48.0) L 08/14/16 18:15 MCV 82.5 fL (80.0-105.0) 08/14/16 18:15 MCH 27.0 pg (25.0-35.0) 08/14/16 18:15 MCHC 32.7 g/dl (31.0-37.0) 08/14/16 18:15 RDW 13.7 % (11.5-14.5) 08/14/16 18:15 Plt Count 281 10^3/uL (120.0-450.0) 08/14/16 18:15 MPV 9.9 fl (7.0-11.0) 08/14/16 18:15 Gran % 50.0 % (50.0-68.0) 08/14/16 18:15 Lymph % (Auto) 38.2 % (22.0-35.0) H 08/14/16 18:15 [place] % (Auto) 8.5 % (1.0-6.0) H 08/14/16 18:15 Eos % (Auto) 2.5 % (1.5-5.0) 08/14/16 18:15 Baso % (Auto) 0.8 % (0.0-3.0) 08/14/16 18:15 Gran # 3.06 (1.4-6.5) 08/14/16 18:15 Lymph # 2.3 (1.2-3.4) 08/14/16 18:15 [place] # 0.5 (0.1-0.6) 08/14/16 18:15 Eos # 0.2 (0.0-0.7) 08/14/16 18:15 Baso # 0.05 K/mm3 (0.0-2.0) 08/14/16 18:15 PT 12.3 Seconds (9.9-11.8) H 08/14/16 18:15 INR 1.14 (0.93-1.08) H 08/14/16 18:15 APTT 27.1 Seconds (23.7-30.8) 08/14/16 18:15 Sodium 137 mmol/L (132-148) 08/14/16 18:15 Potassium 4.0 mmol/L (3.6-5.0) 08/14/16 18:15 Chloride 99 mmol/L (98-107) 08/14/16 18:15 Carbon Dioxide 26 mmol/L (21-33) 08/14/16 18:15 Anion Gap 16 (10-20) 08/14/16 18:15 BUN 33 mg/dL (7-21) H 08/14/16 18:15 Creatinine 1.1 mg/dL (0.5-1.4) 08/14/16 18:15 Est GFR ( Amer) 58 08/14/16 18:15 Est GFR (Non-Af Amer) 48 08/14/16 18:15 POC Glucose (mg/dL) 323 mg/dL (65-110) H 08/16/16 21:07 Random Glucose 267 mg/dL (70-110) H 08/14/16 18:15 Calcium 11.0 mg/dL (8.4-10.5) H 08/14/16 18:15 Total Bilirubin 0.4 mg/dL (0.2-1.3) 08/14/16 18:15 AST 45 U/L (15-39) H 08/14/16 18:15 ALT 39 U/L (7-56) 08/14/16 18:15 Alkaline Phosphatase 86 U/L (38-133) 08/14/16 18:15 Total Protein 7.4 g/dL (5.8-8.3) 08/14/16 18:15 Albumin 4.3 g/dL (3.0-4.8) 08/14/16 18:15 Globulin 3.1 gm/dL 08/14/16 18:15 Albumin/Globulin Ratio 1.4 (1.1-1.8) 08/14/16 18:15 Blood Type O POSITIVE 08/14/16 18:15 Blood Type Confirm O POSITIVE 08/14/16 20:40 Antibody Screen Negative 08/14/16 18:15 BBK History Checked No verified bt 08/14/16 18:15 - Constitutional Appears: Well, No Acute Distress - Head Exam Head Exam: ATRAUMATIC, NORMAL INSPECTION, NORMOCEPHALIC - Eye Exam Eye Exam: Normal appearance - ENT Exam ENT Exam: Normal External Ear Exam - Neck Exam Neck Exam: Normal Inspection - Respiratory Exam Respiratory Exam: NORMAL BREATHING PATTERN - Cardiovascular Exam Cardiovascular Exam: absent: JVD - GI/Abdominal Exam GI & Abdominal Exam: absent: Distended - Rectal Exam Rectal Exam: Deferred - Exam Additional comments: above deferred. - Extremities Exam Additional comments: Left hand has dressing on which is clean and dry. Both feet examined. There is no redness , swelling or tenderness. - Back Exam Back Exam: NORMAL INSPECTION - Neurological Exam Neurological Exam: Alert, Oriented x3 - Psychiatric Exam Psychiatric exam: Normal Affect, Normal Mood - Skin Additional comments: See elsewhere. Assessment and Plan - Assessment and Plan (Free Text) Assessment: Itchin in feet. S/P repair of pseudoaneurism of left palm. DM II HTN. CAD Hx coronary stenting. Plan: Bendadry 25 mg po stat. Observation. Continue present management.
[2016-08-17 07:44] LABS: BASO # 0.06 K/mm3 (0.0-2.0); BASO % 0.7 % (0.0-3.0); EOS # 0.3 (0.0-0.7); EOS % 3.2 % (1.5-5.0); GRAN # 5.48 (1.4-6.5); GRAN % 67.3 % (50.0-68.0); HEMOGLOBIN 9.7 gm/dL (12.0-16.0); LYMPH # 1.8 (1.2-3.4); LYMPH % 21.8 % (22.0-35.0); MEAN CELL VOLUME 82.6 fL (80.0-105.0); MEAN CORPUSCULAR HEMOGLOBIN 26.4 pg (25.0-35.0); MEAN PLATELET VOLUME 10.1 fl (7.0-11.0); MONO # 0.6 (0.1-0.6); PLATELET COUNT 252 10^3/uL (120.0-450.0); RBC 3.67 10^6/uL (3.5-6.1); RED CELL DISTRIBUTION WIDTH 13.8 % (11.5-14.5); WHITE BLOOD COUNT 8.2 10^3/ul (4.5-11.0)
[2016-08-17 07:56] LABS: ALB/GLOB RATIO 1.2 (1.1-1.8); ALBUMIN 3.6 g/dL (3.0-4.8); CALCIUM 10.6 mg/dL (8.4-10.5)
[2016-08-17] MEDS: Insulin Reg-LOW-Coverage SC SCH ×2 (08:22→12:30)
[2016-08-17] MEDS: Ciprofloxacin 0.3% OPTH SOLN OS SCH (08:22)
[2016-08-17 09:17] VITALS: BP 132/81; PULSE 93; TEMP 99; O2SAT 98
[2016-08-17] MEDS: Amylase/Lipase/Protease 5,000 U ECC PO SCH ×2 (09:37→14:31)
[2016-08-17] MEDS: cefTRIAXone 1 gm 1 GM/100 ML BAG IVPB SCH (09:39)
--- NOTE | 2016-08-17 11:49 | CP.PCM.PN ---
Subjective - Date & Time of Evaluation Date of Evaluation: 08/17/16 Time of Evaluation: 11:45 - Subjective Subjective: Surgery: Dr. Leal Patient doing well this am. Denies pain to the left hand. She reports good movement in all fingers and wrist. She denies numbness or tingling. Objective - Vital Signs/Intake and Output Vital Signs (last 24 hours): Temp Pulse Resp BP Pulse Ox 99 F 93 H 20 132/81 98 08/17/16 09:17 08/17/16 09:38 08/17/16 09:17 08/17/16 09:38 08/17/16 09:17 Intake and Output: 08/17/16 08/17/16 06:59 18:59 Intake Total 520 Balance 520 - Medications Medications: Current Medications Amylase (Pancrease 90773 U-5000 U-84890 U) 10,000 u PO TID [facility] Last Admin: 08/17/16 09:37 Dose: 10,000 u Aspirin (Ecotrin) 81 mg PO HS [facility] Last Admin: 08/16/16 21:21 Dose: 81 mg Atorvastatin Calcium (Lipitor) 10 mg PO DIN [facility] Last Admin: 08/16/16 17:21 Dose: 10 mg Ciprofloxacin (Ciloxan 0.3% Ophth Soln) 1 drop OS BIDAC [facility] Last Admin: 08/17/16 08:22 Dose: 1 drop Clopidogrel Bisulfate (Plavix) 75 mg PO HS [facility] Last Admin: 08/16/16 21:20 Dose: 75 mg Famotidine (Pepcid) 40 mg PO HS [facility] Last Admin: 08/16/16 21:20 Dose: 40 mg Gabapentin (Neurontin) 600 mg PO TID [facility] PRN Reason: Protocol Last Admin: 08/17/16 09:37 Dose: 600 mg Glyburide (Micronase) 5 mg PO BID [facility] Last Admin: 08/17/16 09:37 Dose: 5 mg Hydromorphone HCl (Dilaudid) 0.5 mg IVP Q4H PRN PRN Reason: Pain, Mild (1-3) Ceftriaxone Sodium (Rocephin 1 Gram Ivpb) 1 gm in 100 mls @ 100 mls/hr IVPB DAILY [facility] PRN Reason: Protocol Last Admin: 08/17/16 09:39 Dose: 100 mls/hr Insulin Human Regular (Humulin R Low) [address] [facility] PRN Reason: Protocol Last Admin: 08/17/16 08:22 Dose: 3 units Metformin HCl (Glucophage) 1,000 mg PO BID [facility] Last Admin: 08/17/16 09:38 Dose: 1,000 mg Metoprolol Tartrate (Lopressor) 25 mg PO BID [facility] Last Admin: 08/17/16 09:38 Dose: 25 mg Tramadol HCl (Ultram) 50 mg PO Q6 PRN PRN Reason: Pain, moderate (4-7) - Labs Labs: 08/17/16 06:55 08/17/16 06:55 PT 12.3 Seconds (9.9-11.8) H 08/14/16 18:15 INR 1.14 (0.93-1.08) H 08/14/16 18:15 APTT 27.1 Seconds (23.7-30.8) 08/14/16 18:15 - Constitutional Appears: Non-toxic, No Acute Distress - Head Exam Head Exam: ATRAUMATIC, NORMOCEPHALIC - Eye Exam Eye Exam: EOMI, Normal appearance - ENT Exam ENT Exam: Mucous Membranes Moist - Respiratory Exam Respiratory Exam: NORMAL BREATHING PATTERN. absent: Respiratory Distress - Cardiovascular Exam Cardiovascular Exam: REGULAR RHYTHM. absent: Tachycardia - Extremities Exam Additional comments: Left hand w/ Kerlex wrapped gauze. Dressing clean dry and intact. Extremity warm w/ brisk capillary refill. Mild edema noted to fingers symmetrically. ulnar pulse palpable. Assessment and Plan - Assessment and Plan (Free Text) Assessment: 81 y/o female s/p left digital artery pseudoaneurysm excision POD1 Plan: -ok for d/c from surgical standpoint -hector f/u w/ Dr. Leal in 1-2 weeks -call office for appointment -d/w Dr. Leal [facility], [place], operated by [facility] PGY1
--- NOTE | 2016-08-17 14:13 | CP.PCM.PN ---
Subjective - Date & Time of Evaluation Date of Evaluation: 08/17/16 Time of Evaluation: 14:11 - Subjective Subjective: pt is going home Rx for tramadol 50 mg po q6h prn #12 given as requested by Dr tai. Objective - Vital Signs/Intake and Output Vital Signs (last 24 hours): Temp Pulse Resp BP Pulse Ox 99 F 93 H 20 132/81 98 08/17/16 09:17 08/17/16 09:38 08/17/16 09:17 08/17/16 09:38 08/17/16 09:17 Intake and Output: 08/17/16 08/17/16 06:59 18:59 Intake Total 520 Balance 520 - Medications Medications: Current Medications Amylase (Pancrease 06321 U-5000 U-15189 U) 10,000 u PO TID [facility] Last Admin: 08/17/16 09:37 Dose: 10,000 u Aspirin (Ecotrin) 81 mg PO HS [facility] Last Admin: 08/16/16 21:21 Dose: 81 mg Atorvastatin Calcium (Lipitor) 10 mg PO DIN [facility] Last Admin: 08/16/16 17:21 Dose: 10 mg Ciprofloxacin (Ciloxan 0.3% Ophth Soln) 1 drop OS BIDAC [facility] Last Admin: 08/17/16 08:22 Dose: 1 drop Clopidogrel Bisulfate (Plavix) 75 mg PO HS [facility] Last Admin: 08/16/16 21:20 Dose: 75 mg Famotidine (Pepcid) 40 mg PO HS [facility] Last Admin: 08/16/16 21:20 Dose: 40 mg Gabapentin (Neurontin) 600 mg PO TID [facility] PRN Reason: Protocol Last Admin: 08/17/16 09:37 Dose: 600 mg Glyburide (Micronase) 5 mg PO BID [facility] Last Admin: 08/17/16 09:37 Dose: 5 mg Hydromorphone HCl (Dilaudid) 0.5 mg IVP Q4H PRN PRN Reason: Pain, Mild (1-3) Ceftriaxone Sodium (Rocephin 1 Gram Ivpb) 1 gm in 100 mls @ 100 mls/hr IVPB DAILY [facility] PRN Reason: Protocol Last Admin: 08/17/16 09:39 Dose: 100 mls/hr Insulin Human Regular (Humulin R Low) 0 units SC [facility] PRN Reason: Protocol Last Admin: 08/17/16 12:30 Dose: 3 units Metformin HCl (Glucophage) 1,000 mg PO BID [facility] Last Admin: 08/17/16 09:38 Dose: 1,000 mg Metoprolol Tartrate (Lopressor) 25 mg PO BID [facility] Last Admin: 08/17/16 09:38 Dose: 25 mg Tramadol HCl (Ultram) 50 mg PO Q6 PRN PRN Reason: Pain, moderate (4-7) - Labs Labs: 08/17/16 06:55 08/17/16 06:55 PT 12.3 Seconds (9.9-11.8) H 08/14/16 18:15 INR 1.14 (0.93-1.08) H 08/14/16 18:15 APTT 27.1 Seconds (23.7-30.8) 08/14/16 18:15
--- NOTE | 2016-08-17 14:49 | CP.PCM.PN ---
Subjective - Date & Time of Evaluation Date of Evaluation: 08/17/16 Time of Evaluation: 13:00 - Subjective Subjective: This is a 81F with a PMH of HTN, CAD s/p Stenting, Chronic pancreatitis, and glaucoma presents with a pulsitile mass that she recognized a few days ago. She reports that a week and a hlaf ago she come to the ED due to a laceration on her hand. It was sutured in the ED. A few days ago she noticed a lump which was painful and she thought it maybe infected so she went to the ED. It was noted that it was pulsitile and an ultrasound was done which showed a 1.7 cm psuedoaneurysm on the left hand. She denies any fevers or chills at home, denies chets pain SOB or any other alarming symptomes. feels better, being d/c home today after pseudoaneurysm repair Objective - Vital Signs/Intake and Output Vital Signs (last 24 hours): Temp Pulse Resp BP Pulse Ox 99 F 93 H 20 132/81 98 08/17/16 09:17 08/17/16 09:38 08/17/16 09:17 08/17/16 09:38 08/17/16 09:17 Intake and Output: 08/17/16 08/17/16 06:59 18:59 Intake Total 520 600 Balance 520 600 - Medications Medications: Current Medications Amylase (Pancrease 13711 U-5000 U-20864 U) 10,000 u PO TID [facility] Last Admin: 08/17/16 14:31 Dose: 10,000 u Aspirin (Ecotrin) 81 mg PO [facility] Last Admin: 08/16/16 21:21 Dose: 81 mg Atorvastatin Calcium (Lipitor) 10 mg PO DIN [facility] Last Admin: 08/16/16 17:21 Dose: 10 mg Ciprofloxacin (Ciloxan 0.3% Oph Soln) 1 drop OS BIDAC [facility] Last Admin: 08/17/16 08:22 Dose: 1 drop Clopidogrel Bisulfate (Plavix) 75 mg PO HS [facility] Last Admin: 08/16/16 21:20 Dose: 75 mg Famotidine (Pepcid) 40 mg PO HS [facility] Last Admin: 08/16/16 21:20 Dose: 40 mg Gabapentin (Neurontin) 600 mg PO TID [facility] PRN Reason: Protocol Last Admin: 08/17/16 14:31 Dose: 600 mg Glyburide (Micronase) 5 mg PO BID [facility] Last Admin: 08/17/16 09:37 Dose: 5 mg Hydromorphone HCl (Dilaudid) 0.5 mg IVP Q4H PRN PRN Reason: Pain, Mild (1-3) Ceftriaxone Sodium (Rocephin 1 Gram Ivpb) 1 gm in 100 mls @ 100 mls/hr IVPB DAILY [facility] PRN Reason: Protocol Last Admin: 08/17/16 09:39 Dose: 100 mls/hr Insulin Human Regular (Humulin R Low) 0 units SC ACHS [facility] PRN Reason: Protocol Last Admin: 08/17/16 12:30 Dose: 3 units Metformin HCl (Glucophage) 1,000 mg PO BID [facility] Last Admin: 08/17/16 09:38 Dose: 1,000 mg Metoprolol Tartrate (Lopressor) 25 mg PO BID [facility] Last Admin: 08/17/16 09:38 Dose: 25 mg Tramadol HCl (Ultram) 50 mg PO Q6 PRN PRN Reason: Pain, moderate (4-7) - Labs Labs: 08/17/16 06:55 08/17/16 06:55 PT 12.3 Seconds (9.9-11.8) H 08/14/16 18:15 INR 1.14 (0.93-1.08) H 08/14/16 18:15 APTT 27.1 Seconds (23.7-30.8) 08/14/16 18:15 - Constitutional Appears: Well - Extremities Exam Additional comments: left hand dressing, good blood flow to fingers Assessment and Plan (1) Asthma Status: Acute (2) Sleep apnea Status: Acute (3) Lung nodule Status: Acute (4) Insomnia Status: Acute (5) Pseudoaneurysm Status: Acute - Assessment and Plan (Free Text) Assessment: stable doing well, will be d/c home
--- NOTE | 2016-08-19 18:02 | RAD ---
PROCEDURE: Fluoroscopy greater than 1 hour HISTORY: LT arm pseudoaneurysm COMPARISON: None TECHNIQUE: Standard protocol for this study/examination. FINDINGS: Total fluoroscopic time (continuous mode) utilized during the procedure: 0.3 seconds IMPRESSION: Submitted images from the current procedure: 1.0
--- NOTE | 2016-08-31 11:53 | PCM.OP ---
Operative Report - Operative Report Date of Surgery/Procedure: 08/16/16 Time of Surgery/Procedure: 22:54 Surgeon: Louann Leal Anesthesia/Sedation: General Pre-Operative Diagnosis: Left hand, arch for aneurysm Post-Operative Diagnosis: Left full, metacarpal artery aneurysm Indication for Surgery: Resection of left, metacarpal artery aneurysm Procedure/Operation Description: Patient was brought to the OR and placed upon the OR table. After general anesthesia had been accomplished, the entire right hand and forearm were prepped with chloraprep and draped over with a sterile field. Esmarch Tourniquet was used to compress all the venous return cephalon. After that, a pneumatic tourniquet was inflated to two times the patient systolic blood pressure. The angiogram was reviewed and the origin of the 4th aneurysm was marked on the palm and the transverse incision was made, measuring approximately 1 inch. Flaps were created, proximal and distal and cephalon. The palmar metacarpal artery was identified and so was the flexor tendon. The metacarpal artery was traced all the way distally to the origin of the 4th aneurysm. The content of the 4th aneurysm was evacuated and the metacarpal artery ligated. The pneumatic tourniquet was deflated, no further accumulation of blood was noted. The skin was closed in 1 layer with a 4-0 Monocryl suture. Complications: None
--- NOTE | 2016-09-06 00:21 | OP ---
PROCEDURE DATE: 08/16/2016 PREOPERATIVE DIAGNOSIS: Left hand palmar artery aneurysm. POSTOPERATIVE DIAGNOSIS: Left full metacarpal artery aneurysm. SURGEON: Louann Leal MD INDICATIONS FOR SURGERY: Continuous bleeding. DESCRIPTION OF PROCEDURE: The patient was brought to the OR and placed supine on the OR table. After general anesthesia has been accomplished, the left hand and forearm was prepped with ChloraPrep and draped out in the sterile field using the Esmarch tourniquet to decompress all the venous return cephalad. After that, a pneumatic tourniquet was inflated to 2 times the patient's systolic blood pressure. The angiogram was reviewed and the origin of the flow of metacarpal artery aneurysm was marked on the palm. A transverse incision was made measuring approximately 1 inch. Flaps were created proximally and distally. The palmar metacarpal artery was identified and it was traced all the way to the base of the aneurysm. The aneurysm was evacuated and a full metacarpal artery was ligated, good hemostasis was assured. The pneumatic tourniquet was released. The wound was inspected for bleeding and none was noted. The skin was closed with 1 layer of 4-0 Monocryl subcuticular suture. The patient was awakened in the OR, moving all fingers and she was taken to the recovery room in stable condition. Louann Leal MD
== END 2016-08-17 15:32 | disposition home or self-care (01) | DRG 253 ==
LOC: ED 17:22 → ERH 20:32 → 3RSO 21:55 → 2RSO 08-15 18:20 → 3RSO 08-15 23:08
PROVIDERS: ADMIT Internal Medicine; ATTEND Internal Medicine
PROC: B31JYZZ Fluoroscopy of Left Upper Extremity Arteries using Other Contrast (ICD-10-PCS; 2016-08-15)
PROC: 03BA0ZZ Excision of Left Ulnar Artery, Open Approach (ICD-10-PCS; principal; 2016-08-16 08:30)
DX: I72.1 Aneurysm of artery of upper extremity (principal); K86.1 Other chronic pancreatitis; E11.9 Type 2 diabetes mellitus without complications; I10 Essential (primary) hypertension; I25.10 Atherosclerotic heart disease of native coronary artery without angina pectoris; J45.909 Unspecified asthma, uncomplicated; G47.00 Insomnia, unspecified; E78.5 Hyperlipidemia, unspecified; H40.9 Unspecified glaucoma; G47.30 Sleep apnea, unspecified; Z79.02 Long term (current) use of antithrombotics/antiplatelets; Z79.82 Long term (current) use of aspirin; Z95.5 Presence of coronary angioplasty implant and graft

== ENCOUNTER 2017-04-21 07:17 | Day surgery (SDC) | payer MEDICARE, MEDICAID ==
[2017-04-14 14:14] VITALS: BMI 25.4
[2017-04-21 07:55] LABS: BASO # 0.03 K/mm3 (0.0-2.0); BASO % 0.5 % (0.0-3.0); EOS # 0.1 (0.0-0.7); EOS % 0.9 % (1.5-5.0); GRAN # 4.61 (1.4-6.5); GRAN % 69.2 % (50.0-68.0); HEMOGLOBIN 10.8 g/dL (12.0-16.0); LYMPH # 1.6 (1.2-3.4); LYMPH % 24.1 % (22.0-35.0); MEAN CELL VOLUME 83.3 fl (80.0-105.0); MEAN CORPUSCULAR HEMOGLOBIN 26.6 pg (25.0-35.0); MEAN PLATELET VOLUME 9.7 fl (7.0-11.0); MONO # 0.4 (0.1-0.6); MONO % 5.3 % (1.0-6.0); RBC 4.06 10^6/uL (3.5-6.1); RED CELL DISTRIBUTION WIDTH 14.2 % (11.5-14.5); WHITE BLOOD COUNT 6.7 10^3/ul (4.5-11.0)
[2017-04-21 08:06] LABS: INR 1.09 (0.93-1.08); PARTIAL THROMBOPLASTIN TIME 31.1 Seconds (25.1-36.5); PROTHROMBIN TIME 12.5 SECONDS (9.4-12.5)
[2017-04-21 08:07] LABS: ALB/GLOB RATIO 1.5 (1.1-1.8); ALBUMIN 4.4 g/dL (3.0-4.8); ALT/SGPT 58 U/L (7-56); AMYLASE 54 U/L (35-125); AST/SGOT 85 U/L (14-36); BLOOD UREA NITROGEN 20 mg/dL (7-21); CALCIUM 11.3 mg/dL (8.4-10.5); GAMMA GLUTAMYL TRANSPEPTIDASE 32 U/L (8-78); GFR AFRICAN-AMERICAN > 60; GFR NON-AFRICAN AMERICAN > 60; LIPASE 135 U/L (23-300)
[2017-04-21] MEDS ORDERED: Midazolam 2 MG/2 ML VIAL ONE (09:04)
[2017-04-21] MEDS ORDERED: Lidocaine 2% Inj (20ml) ONE (09:04)
[2017-04-21] MEDS ORDERED: Etomidate 20 mg/10ml Inj IV ONE (09:04)
[2017-04-21] MEDS ORDERED: Propofol 10 mg/ml Inj (20 ML) ONE (09:04)
[2017-04-21] MEDS ORDERED: Labetalol 5 mg/ml Inj 20ML ONE (09:59)
[2017-04-21] MEDS ORDERED: Sodium Chloride 0.9% 1,000 ML IV SCH (10:45)
[2017-04-21 11:22] VITALS: BP 151/85; PULSE 66; RESP 16; TEMP 98.3; O2SAT 100
== END 2017-04-21 14:54 | disposition home or self-care (01) ==
LOC: ENDO 07:17
PROVIDERS: ATTEND Internal Medicine Gastroenterology
DX: Z12.11 Encounter for screening for malignant neoplasm of colon (principal); D12.5 Benign neoplasm of sigmoid colon; K86.1 Other chronic pancreatitis; K57.30 Diverticulosis of large intestine without perforation or abscess without bleeding; K29.50 Unspecified chronic gastritis without bleeding; K86.89 Other specified diseases of pancreas; K64.8 Other hemorrhoids; Z80.0 Family history of malignant neoplasm of digestive organs; I10 Essential (primary) hypertension; I25.10 Atherosclerotic heart disease of native coronary artery without angina pectoris; E11.9 Type 2 diabetes mellitus without complications; Z79.84 Long term (current) use of oral hypoglycemic drugs
CPT/HCPCS: 36415; 43237; 43239; 45381; 45385; 80053; 82150; 82977; 83690; 85025; 85610; 85730; 88305; 88312; 88342; J2250; J2704; J3010; J7030; J7040 ×2

== ENCOUNTER 2018-02-25 19:58 | Emergency (ER) | payer MEDICARE, MEDICAID ==
[2018-02-25 19:58] VITALS: BMI 25.4
--- NOTE | 2018-02-25 20:36 | ED PDOC ---
Arrival/HPI - General Chief Complaint: Trauma Time Seen by Provider: 02/25/18 20:03 Historian: Patient, Family - History of Present Illness Narrative History of Present Illness (Text): 02/25/18 20:33 82 y/o F w/ h/o DM, CAD(on aspirin & Plavix)and HTN presenting to the Emergency Room s/p fall. Patient was at home walking when she sustained a mechanical trip falling backwards onto her head. The patient's daughter states she found her mom alert and oriented, but bleeding from the back of the head as a result of a laceration from the fall. Patient denies LOC, neck pain or back pain. She denies dizziness, chest pain, shortness of breath, abdominal pain, nausea, emesis, fevers, or generalized weakness as a result of the incident. PCP: Dr. Field Time/Duration: Prior to Arrival Symptom Course: Unchanged Activities at Onset: Rest Context: Home, Tripped Past Medical History - Provider Review Nursing Documentation Reviewed: Yes - Travel History Have you recently traveled outside [place] w/in the past 3 mons?: No - Infectious Disease Hx of Infectious Diseases: None - Cardiac Hx Pacemaker: No - Pulmonary Hx Respiratory Disorders: No - Neurological Hx Paralysis: No - HEENT Hx HEENT Disorder: Yes Other/Comment: glasses - Renal Hx Renal Disorder: No - Endocrine/Metabolic Hx Endocrine Disorders: Yes Hx Diabetes Mellitus Type 2: Yes - Hematological/Oncological Hx Blood Transfusions: No Hx Blood Transfusion Reaction: No - Integumentary Hx Dermatological Disorder: No - Musculoskeletal/Rheumatological Hx Musculoskeletal Disorders: Yes - Gastrointestinal Hx Gastrointestinal Disorders: No - Genitourinary/Gynecological Hx Genitourinary Disorders: No - Psychiatric Hx Emotional Abuse: No Hx Physical Abuse: No Hx Substance Use: No - Surgical History Hx Cardiac Catheterization: Yes (stent x1) - Anesthesia Hx Anesthesia Reactions: No (FELT EVERYTHING DURING COLONOSCOPY) Hx Malignant Hyperthermia: No - Suicidal Assessment Feels Threatened In Home Enviroment: No Family/Social History - Physician Review Nursing Documentation Reviewed: Yes Family/Social History: Unknown Family HX Smoking Status: Never Smoked Hx Alcohol Use: No Hx Substance Use: No Allergies/Home Meds Allergies/Adverse Reactions: Allergies vancomycin Allergy (Verified 02/25/18 20:08) ITCHING Home Medications: Home Meds Medication Instructions Recorded Confirmed RX: Metformin HCl 1,000 mg PO BID 08/30/13 02/25/18 RX: Gabapentin [Neurontin] 600 mg PO TID 04/20/15 02/25/18 RX: Glyburide 5 mg PO BID 04/20/15 02/25/18 RX: Metoprolol Tartrate [Lopressor] 25 mg PO BID 04/20/15 02/25/18 RX: Aspirin [Ecotrin] 81 mg PO QPM 04/29/15 02/25/18 RX: Clopidogrel [Plavix] 75 mg PO QPM 04/30/15 02/25/18 Atorvastatin [Lipitor] 10 mg PO DIN 04/14/17 02/25/18 Lipase/Protease/Amylase [Zenpep Dr 1 each PO TID 04/14/17 02/25/18 10,000 Units Capsule] Pantoprazole Sodium [Protonix] 40 mg PO DAILY 04/19/17 02/25/18 Zolpidem [Ambien] 10 mg PO HS 04/19/17 02/25/18 Review of Systems - Physician Review All systems were reviewed & negative as marked: Yes - Review of Systems Skin: Laceration (Present at occiput) Physical Exam Vital Signs Reviewed: Yes Temperature: Afebrile Blood Pressure: Normal Pulse: Regular Respiratory Rate: Normal Appearance: Positive for: Well-Appearing, Non-Toxic, Comfortable Mental Status: Positive for: Alert and Oriented X 3 - Systems Exam Head: Present: Normocephalic, Laceration (Present at occiput) Pupils: Present: PERRL Extroacular Muscles: Present: EOMI Conjunctiva: Present: Normal Mouth: Present: Moist Mucous Membranes Neck: Present: Normal Range of Motion Respiratory/Chest: Present: Clear to Auscultation, Good Air Exchange. No: Respiratory Distress, Accessory Muscle Use Cardiovascular: Present: Regular Rate and Rhythm, Normal S1, S2. No: Murmurs Abdomen: Present: Normal Bowel Sounds. No: Tenderness, Distention, Peritoneal Signs Lower Extremity: Present: Normal Inspection, Capillary Refill < 2 s. No: Edema Neurological: Present: GCS=15, CN II-XII Intact, Speech Normal Skin: Present: Warm, Dry, Normal Color, Laceration (Present at occiput). No: Rashes Psychiatric: Present: Alert, Oriented x 3, Normal Insight, Normal Concentration Medical Decision Making ED Course and Treatment: 02/25/18 21:37 Impression 82 y/o F presenting s/p mechanical fall Differential Diagnoses Include But Are Not Limited To: --Intracranial hemorrhage --Calavarial fracture --Subdural hemorrhage Plan --Labs --Lidocaine --Yung --EKG --CXR --CTH --CT C-c spine --Reassess & disposition Progress Notes 02/25/18 22:30 CTH negative for intracranial bleeding or calavarial fractures. CT C-spine negative for dislocation/subluxation or fractures. Yung placed with adequate hemoestasis established. Patient and daughter advised to follow up with Dr. Field(PCP) in office. Patient able to ambulate unassisted. She is stable for discharge. - Lab Interpretations Lab Results: 02/25/18 21:01 02/25/18 21:01 Lab Results 02/25/18 21:01: Sodium 138, Potassium 4.6, Chloride 100, Carbon Dioxide 24, Anion Gap 18, BUN 39 H, Creatinine 1.3 H, Est GFR ( Amer) 48, Est GFR (Non-Af Amer) 39, Random Glucose 173 H, Calcium 11.5 H, Total Bilirubin 0.3, AST 51 H D, ALT 29, Alkaline Phosphatase 72, Troponin I < 0.01, Total Protein 7.9, Albumin 4.6, Globulin 3.4, Albumin/Globulin Ratio 1.4 02/25/18 21:01: PT 12.1, INR 1.06, APTT 27.7 02/25/18 21:01: WBC 8.1, RBC 4.10, Hgb 10.5 L, Hct 33.1 L, MCV 80.7, MCH 25.6, MCHC 31.7, RDW 14.4, Plt Count 343, MPV 9.7, Gran % 51.2, Lymph % (Auto) 38.4 H, [place] % (Auto) 6.3 H, Eos % (Auto) 3.4, Baso % (Auto) 0.7, Gran # 4.12, Lymph # (Auto) 3.1, [place] # (Auto) 0.5, Eos # (Auto) 0.3, Baso # (Auto) 0.06 I have reviewed the lab results: Yes - RAD Interpretation Narrative RAD Interpretations (Text): 02/25/2017 22:[address] IMPRESSION: 1. There is generalized parenchymal atrophy noted as demonstrated by symmetrical dilatation of ventricles and sulci. 2. Chronic periventricular and subcortical microvascular disease is seen. 3. No acute intracranial pathology. Dictator: Beto Milton MD 02/25/2017 22:[address] IMPRESSION: 1. No fracture or spondylolisthesis. 2. Straightening of cervical lordosis is seen, suggesting muscular spasm. 3. Multilevel spondylosis. Dictator: Beto Milton MD Radiology Orders: 02/25/18 20:32 CERVICAL SPINE W/O CONTRAST [CT] Stat HEAD W/O CONTRAST [CT] Stat - EKG Interpretation EKG Interpretation (Text): EKG: Ordered, reviewed, and independently interpreted the EKG. Rate : 85 BPM Rhythm : NSR with LAFB Interpretation : 1st degree AV block. Comparison : No previous EKG for comparison. Interpreted by ED Physician: Yes Procedure: Wound Repair - Time Performed Time Performed: 22:45 - Consent Obtained Consent obtained: Emergent consent implied - Performed by Performed by: Attending Physician - Indications Indication(s):: Laceration - Location Location:: Scalp - Anesthetic Technique Anesthetic Technique: Local Local/Regional Anesthetic:: Lidocaine 1% - Wound Examination Wound Examination:: Ecchymosis - Debris Debris:: None - Irrigated Irrigated with ml of normal saline: 10 - Complexity Complexity:: Simple (one layer) - Wound repair method Sutures:: # (3 yung) - Complications Complications: None - Patient tolerated procedure Patient Tolerated Procedure:: Well Disposition/Present on Arrival - Present on Arrival Any Indicators Present on Arrival: No History of DVT/PE: No History of Uncontrolled Diabetes: No Urinary Catheter: No History of Decub. Ulcer: No History Surgical Site Infection Following: None - Disposition Have Diagnosis and Disposition been Completed?: Yes Diagnosis: Fall, Laceration of head Disposition: HOME/ ROUTINE Disposition Time: 23:10 Patient Plan: Discharge Condition: IMPROVED Discharge Instructions (ExitCare): Wound Care (DC), Laceration Repair With [place] (DC) Print Language: CAMBODIAN Additional Instructions: Please return to ED in 3-5 for removal of yung Referrals: Shayla Field MD [Primary Care Provider] - Follow up with primary Forms: [employer] (Honduran)
[2018-02-25 21:10] LABS: BASO # 0.06 K/mm3 (0.0-2.0); BASO % 0.7 % (0.0-3.0); EOS # 0.3 (0.0-0.7); EOS % 3.4 % (1.5-5.0); GRAN # 4.12 (1.4-6.5); GRAN % 51.2 % (50.0-68.0); HEMOGLOBIN 10.5 g/dL (12.0-16.0); LYMPH # 3.1 (1.2-3.4); LYMPH % 38.4 % (22.0-35.0); MEAN CELL VOLUME 80.7 fl (80.0-105.0); MEAN CORPUSCULAR HEMOGLOBIN 25.6 pg (25.0-35.0); MEAN CORPUSCULAR HGB CONC 31.7 g/dl (31.0-37.0); MEAN PLATELET VOLUME 9.7 fl (7.0-11.0); MONO # 0.5 (0.1-0.6); MONO % 6.3 % (1.0-6.0); RBC 4.1 10^6/uL (3.5-6.1); RED CELL DISTRIBUTION WIDTH 14.4 % (11.5-14.5); WHITE BLOOD COUNT 8.1 10^3/uL (4.5-11.0)
[2018-02-25 21:18] LABS: INR 1.06; PARTIAL THROMBOPLASTIN TIME 27.7 Seconds (25.1-36.5); PROTHROMBIN TIME 12.1 SECONDS (9.4-12.5)
[2018-02-25 21:22] LABS: ALB/GLOB RATIO 1.4 (1.1-1.8); ALBUMIN 4.6 g/dL (3.0-4.8); ALT/SGPT 29 U/L (7-56); AST/SGOT 51 U/L (14-36); BLOOD UREA NITROGEN 39 mg/dL (7-21); CALCIUM 11.5 mg/dL (8.4-10.5); GFR NON-AFRICAN AMERICAN 39
[2018-02-25 21:33] LABS: TROPONIN I < 0.01 ng/mL
[2018-02-25] MEDS ORDERED: Lidocaine 1% Inj (20ml) ONE (22:46)
[2018-02-25] MEDS ORDERED: Bacitracin 500 Units/gm Oint Foilpak UD ONE (23:20)
[2018-02-25 23:24] VITALS: BP 130/80; PULSE 87; RESP 20; TEMP 98; O2SAT 99
--- NOTE | 2018-02-26 10:03 | CT ---
Date of service: 02/25/2018 PROCEDURE: CT HEAD WITHOUT CONTRAST. HISTORY: headache COMPARISON: None available. TECHNIQUE: Axial computed tomography images were obtained through the head/brain without intravenous contrast. Radiation dose: Total exam DLP = 947.13 mGy-cm. This CT exam was performed using one or more of the following dose reduction techniques: Automated exposure control, adjustment of the mA and/or kV according to patient size, and/or use of iterative reconstruction technique. FINDINGS: HEMORRHAGE: No intracranial hemorrhage. BRAIN: No mass effect or edema. Periventricular white matter hypodensity, statistically most likely secondary to microvascular ischemic disease. VENTRICLES: Unremarkable. No hydrocephalus. CALVARIUM: Unremarkable. PARANASAL SINUSES: Unremarkable as visualized. No significant inflammatory changes. MASTOID AIR CELLS: Unremarkable as visualized. No inflammatory changes. OTHER FINDINGS: None. IMPRESSION: No acute hemorrhage.
--- NOTE | 2018-02-26 10:16 | CT ---
Date of service: 02/25/2018 PROCEDURE: CT Cervical Spine without contrast HISTORY: fall COMPARISON: None available. TECHNIQUE: Axial computed tomography images were obtained of the cervical spine without the use of intravenous contrast. Coronal and sagittal reformatted images were created and reviewed. Radiation dose: Total exam DLP = 434.29 mGy-cm. This CT exam was performed using one or more of the following dose reduction techniques: Automated exposure control, adjustment of the mA and/or kV according to patient size, and/or use of iterative reconstruction technique. FINDINGS: VERTEBRAE: No fracture. Normal alignment. No destructive bony lesion. DISCS/SPINAL CANAL/NEURAL FORAMINA: Multilevel degenerative spondylosis and degenerative disc disease. Delete PARASPINAL SOFT TISSUES: Unremarkable. OTHER FINDINGS: Bilateral apical ground-glass density changes in the lungs. IMPRESSION: No acute fracture.
--- NOTE | 2018-02-26 10:32 | CARD ---
APPROVED REPORT Date of service: 02/25/2018 EKG Measurement Heart [id number] <Conclusion> Sinus rhythm with 1st degree AV block Left anterior fascicular block Moderate voltage criteria for LVH, may be normal variant Small Q I, AVL Possible [place]?
== END 2018-02-25 23:24 | disposition home or self-care (01) ==
LOC: ED 19:58
DX: S01.01XA Laceration without foreign body of scalp, initial encounter (principal); W01.0XXA Fall on same level from slipping, tripping and stumbling without subsequent striking against object, initial encounter; Y93.01 Activity, walking, marching and hiking; Y92.009 Unspecified place in unspecified non-institutional (private) residence as the place of occurrence of the external cause; I25.10 Atherosclerotic heart disease of native coronary artery without angina pectoris; I10 Essential (primary) hypertension; E11.9 Type 2 diabetes mellitus without complications; Z95.5 Presence of coronary angioplasty implant and graft; Z79.02 Long term (current) use of antithrombotics/antiplatelets; Z79.82 Long term (current) use of aspirin

== ENCOUNTER 2018-07-09 11:33 | Day surgery (SDC) | payer MEDICARE, MEDICAID ==
[2018-06-28 11:19] VITALS: BMI 23.8
[2018-07-09] MEDS ORDERED: Sodium Chloride 0.9% 1,000 ML IV SCH (12:15)
[2018-07-09] MEDS ORDERED: Propofol 10 mg/ml Inj (20 ML) ONE (13:11)
[2018-07-09 15:14] VITALS: BP 147/85; PULSE 81; RESP 18; TEMP 98.1; O2SAT 97
== END 2018-07-09 15:13 | disposition home or self-care (01) ==
LOC: ENDO 11:33
PROVIDERS: ATTEND Internal Medicine Gastroenterology
DX: K31.819 Angiodysplasia of stomach and duodenum without bleeding (principal); D50.9 Iron deficiency anemia, unspecified; K29.50 Unspecified chronic gastritis without bleeding; K31.89 Other diseases of stomach and duodenum; K44.9 Diaphragmatic hernia without obstruction or gangrene; E11.9 Type 2 diabetes mellitus without complications; I25.10 Atherosclerotic heart disease of native coronary artery without angina pectoris; I10 Essential (primary) hypertension
CPT/HCPCS: 43239; 43255; 82948; 88305; 88342; J2001; J2704; J7030; J7040